=== PATIENT | male | born 1965 | race Caucasian/White ===

== ENCOUNTER 2019-12-05 08:39 | Day surgery (SDC) | payer OTHER ==
[2019-12-05] VITALS (8 sets, daily range): BP systolic 104–125; BP diastolic 65–87
[~2019-12-05] VITALS: Ht 175.3 cm; Wt 74.8 kg
--- NOTE | 2019-12-05 07:19 | Anethesia Preoperative Eval ---
Anesthesia Pre-op PMH/ROS General Date of Evaluation: Dec 05, 2019 Time of Evaluation: 07:19 Anesthesiologist: tamir ASA Score: ASA 2 Mallampati Score Class I : Soft palate, uvula, fauces, pillars visible Class II: Soft palate, uvula, fauces visible Class III: Soft palate, base of uvula visible Class IV: Only hard plate visible Mallampati Classification: Class II Surgeon: joanna Diagnosis: colon screening Surgical Procedure: colonoscopy Anesthesia History: none Social History: alcohol use Family History: no anesthesia problems Allergies: Coded Allergies: No Known Allergies (Unverified , 12/05/19) Medications: see eMAR Patient NPO?: Yes Past Medical History Gastrointestinal/Genitourinary: Reports: GERD PSxH Narrative: appendectomy Anesthesia Pre-op Phys. Exam Physician Exam Last Vital Signs Date Time Temp Pulse Resp B/P (MAP) Pulse Ox O2 Delivery O2 Flow Rate FiO2 12/05/19 09:08 Room Air 12/05/19 08:59 97.8 54 18 109/65 98 Constitutional: NAD Neurologic: CN 2-12 intact Cardiovascular: RRR Respiratory: CTA Gastrointestinal: S/NT/ND Airway Exam Mallampati Score: Class II MO: full Neck: flexible TMD: 2fb ROM: full Anesthesia Pre-op A/P Risk Assessment & Plan Assessment: asa2 Plan: mac Status Change Before Surgery: No Pre-Antibiotics Drug: Nyla Vazquez MD Dec 05, 2019 07:19
[~2019-12-05 08:39] MED LIST: Atropine Inj 1mg/10ml Syr IV PRN; DiphenhydrAMINE 50mg/ml Inj IVP PRN; LR 1000ml 1,000 ML IVLG SCH; Midazolam 2mg/2ml Inj IVP PRN; fentaNYL 100 mcg/2 mL IV PRN
[2019-12-05] MEDS ORDERED: BIOTIN1 M1 PO (09:04)
[2019-12-05] MEDS ORDERED: VITAMIN D32000 UNI3 PO (09:04)
[2019-12-05] MEDS ORDERED: PROSCAR5 MG ORAL (09:04)
[2019-12-05] MEDS ORDERED: VITAMIN B12-FO1 EAC1 PO (09:04)
[2019-12-05] MEDS ORDERED: Lidocaine 1% MPF 10mg/ml 5ml ONE (09:45)
[2019-12-05] MEDS ORDERED: Propofol 200mg/20ml IV ONE (09:45)
[2019-12-05] MEDS ORDERED: Atropine Sulfate 0.4mg/ml inj ONE (09:45)
[2019-12-05] MEDS ORDERED: LR 1000ml ONE (09:45)
--- NOTE | 2019-12-05 10:04 | Short Stay Surgery H&P ---
History of Present Illness History of Present Illness Chief Complaint see typed H&P HPI Neil Paniagua is a 54 year old male who was admitted on for Colon Screening Patient History Allergies: Coded Allergies: No Known Allergies (Unverified , 12/05/19) Medication History Scheduled Biotin (Biotin), 1 MG PO DAILY, (Reported) Cyanocobalamin/Folic Acid (Vitamin W00-Ylias Acid Tablet), 1 EACH PO DAILY, ( Reported) Finasteride* (Proscar*), 5 MG ORAL DAILY, (Reported) Miscellaneous Medications Cholecalciferol (Vitamin D3) (Vitamin D3), 1,000 UNIT PO, (Reported) Physical Exam Vital Signs Last Vital Signs Date Time Temp Pulse Resp B/P (MAP) Pulse Ox O2 Delivery O2 Flow Rate FiO2 12/05/19 09:08 Room Air 12/05/19 08:59 97.8 54 18 109/65 98 Plan Attestation Are the patient's medical conditions optimized for surgery? Meenu Coleman MD Dec 05, 2019 10:04
--- NOTE | 2019-12-05 10:05 | Pre-Procedure Note/Attestation ---
Pre-Procedure Note/Attestation Complete Prior to Procedure Planned Procedure: not applicable Procedure Narrative: colon Indications for Procedure Pre-Operative Diagnosis: screen Attestation I attest that I discussed the nature of the procedure; its benefits; risks and complications; and alternatives (and the risks and benefits of such alternatives ), prior to the procedure, with the patient (or the patient's legal sales representative graphic art). I attest that, if there was a reasonable possibility of needing a blood transfusion, the patient (or the patient's legal sales representative graphic art) was given the [facility] standardized written summary, pursuant to the Garrett Alize Blood Safety Act ([place] Health and Safety Code # 1645, as amended). I attest that I re-evaluated the patient just prior to the surgery and that there has been no change in the patient's H&P, except as documented below: Meenu Coleman MD Dec 05, 2019 10:05
--- NOTE | 2019-12-05 10:50 | Immediate Post-Op Evaluation ---
Immediate Post-Op Evalulation Immediate Post-Op Evalulation Procedure: colonoscopy Date of Evaluation: Dec 05, 2019 Time of Evaluation: 10:47 IV Fluids: 250ml lr Blood Products: none Estimated Blood Loss: negligible Blood Pressure Systolic: 125 Blood Pressure Diastolic: 87 Pulse Rate: 66 Respiratory Rate: 18 O2 Sat by Pulse Oximetry: 100 Temperature (Fahrenheit): 97.6 Pain Score (1-10): 0 Nausea: No Vomiting: No Complications none Patient Status: awake, reacts, patent Hydration Status: adequate Drug: Nyla Vazquez MD Dec 05, 2019 10:50
--- NOTE | 2019-12-05 10:51 | 48 Hour Post Anesthesia Eval ---
Post Anesthesia Evaluation Procedure: colonoscopy Date of Evaluation: Dec 05, 2019 Time of Evaluation: 10:50 Blood Pressure Systolic: 119 0: 80 Pulse Rate: 67 Respiratory Rate: 18 Temperature (Fahrenheit): 97.6 O2 Sat by Pulse Oximetry: 100 Airway: patent Nausea: No Vomiting: No Pain Intensity: 0 Hydration Status: adequate Cardiopulmonary Status: stable Mental Status/LOC: patient returned to baseline Post-Anesthesia Complications: none Follow-up care needed: N/A Nyla Lugo MD Dec 05, 2019 10:51
--- NOTE | 2019-12-05 16:00 | Operative Note - Dictated ---
DATE OF OPERATION: 12/05/2019 GASTROENTEROLOGY PROCEDURE REPORT PROCEDURE: Screening colonoscopy. PRE-ENDOSCOPIC DIAGNOSIS: Screening. POST-ENDOSCOPIC DIAGNOSES: 1. Scattered colonic diverticulosis. 2. Mild internal hemorrhoids. SURGEON: Meenu Coleman M.D. ANESTHESIA: Nyla Churchill M.D. DESCRIPTION OF PROCEDURE: The procedure, its risks, indications, alternatives, and possible complications were explained and informed consent was obtained. The patient was then sedated in the left lateral decubitus position and a rectal exam was done, which was unremarkable. The colonoscope was then introduced into the rectum and advanced to about 10 to 15 cm into the terminal ileum. The colonoscope was then gradually withdrawn and the mucosa examined carefully. Examination of the terminal ileum did not reveal any significant abnormalities. The colonic mucosa showed scattered diverticulosis, both in the right and left colon. There were, however, no polyps or masses. Retroflexed view of the rectum revealed internal hemorrhoids. The colonoscope was removed and the patient was sent to recovery in good condition. COMPLICATIONS: None. RECOMMENDATIONS: 1. High-fiber diet. 2. Follow up with primary physician. Meenu Coleman M.D. DR: GABE JOB#: [id number] CC: Meenu Coleman M.D.; Fax#: [phone]
== END 2019-12-05 12:10 | disposition home or self-care (01) ==
LOC: GAS 08:39
DX: Z12.11 Encounter for screening for malignant neoplasm of colon (principal); K57.90 Diverticulosis of intestine, part unspecified, without perforation or abscess without bleeding; K64.8 Other hemorrhoids; Z79.899 Other long term (current) drug therapy; K21.9 Gastro-esophageal reflux disease without esophagitis; I10 Essential (primary) hypertension; E55.9 Vitamin D deficiency, unspecified; L65.9 Nonscarring hair loss, unspecified
CPT/HCPCS: 45378; J0461; J2704; J7120; 94003; 94150